=== PATIENT | male | born 1965 | race Hispanic/Latino ===

== ENCOUNTER 2019-03-24 02:53 | Emergency (ER) | payer BC ==
[2019-03-24] MEDS ORDERED: Ketorolac Tromethamine 30 MG/ML VIAL ONE (03:23)
[2019-03-24 03:29] LABS: #Basophils 0.1 thou/uL (0.0-0.2); #Eosinphils 0.1 thou/uL (0.0-0.7); #Lymphocytes 1.7 thou/uL (1.20-3.40); #Monocytes 0.7 thou/uL (0.11-0.59); #Neutrophils 6.9 thou/uL (1.40-6.50); %Basophils 0.7 % (0.0-1.0); %Eosinophils 0.9 % (0.0-10.0); %Lymphocytes 18.1 % (21.0-51.0); %Monocytes 7.2 % (0.0-10.0); %Neutrophils 73.1 % (42.0-75.0); Hemoglobin 14.9 g/dL (14.0-18.0); Mean Corpuscular HGB CONC 32.8 g/dL (32.0-36.0); Mean Corpuscular Hemoglobin 30.8 pg (27.0-31.0); Mean Corpuscular Volume 94.1 fL (78.0-98.0); Mean Platelet Volume 7.6 fL (7.4-10.4); Platelet Count 256 thou/uL (130-400); RBC Distribution Width 12.2 % (11.5-14.5); Red Blood Cell (RBC) Count 4.83 mill/uL (4.70-6.10); White Blood Cell (WBC) Count 9.4 thou/uL (4.8-10.8)
[2019-03-24 03:49] LABS: ALT (SGPT) 50 U/L (8-55); AST (SGOT) 49 U/L (5-34); Albumin 4.1 g/dL (3.5-5.0); Alkaline Phosphatase 108 U/L (40-150); Anion Gap 15 mmol/L (10-20); BUN (Urea Nitrogen) 12 mg/dL (8.4-25.7); Bilirubin, Total 0.6 mg/dL (0.2-1.2); Calc. Creatinine Clearance 0 mL/min (70-130); Calcium 9.8 mg/dL (7.8-10.44); Carbon Dioxide 24 mmol/L (22-29); Chloride 101 mmol/L (98-107); Estimated GFR-MDRD 71; Globulin 2.9 g/dL (2.4-3.5); Glucose 181 mg/dL (70-105); Lipase 23 U/L (8-78); Potassium 3.7 mmol/L (3.5-5.1); Sodium 136 mmol/L (136-145)
== END 2019-03-24 04:39 | disposition home or self-care (01) ==
LOC: ERS 02:53
DX: R10.32 Left lower quadrant pain (principal); E11.9 Type 2 diabetes mellitus without complications; I10 Essential (primary) hypertension; Z87.891 Personal history of nicotine dependence; Z79.899 Other long term (current) drug therapy; Z79.84 Long term (current) use of oral hypoglycemic drugs
CPT/HCPCS: 80053; 83690; 85025; 96361; 96374; J1885